=== PATIENT | male | born 1985 | race Hispanic/Latino ===

== ENCOUNTER 2017-08-06 21:15 | Emergency (ER) | payer SELFPAY ==
[2017-08-06] MEDS ORDERED: ZOFRAN IV ONE ×2 (22:07→23:40)
[2017-08-06 22:21] LABS: Bilirubin,Urine NEG (Negative); Blood,Urine NEG (Negative); Color,Urine Yellow (Yellow); Hyaline Casts,Urine 2 /LPF; Mucus,Urine 3+ /HPF; Urobilinogen,Urine < 2.0 mg/dL (<2.0)
[2017-08-06 22:27] LABS: Amphetamine Screen,Urine PRESUMPTIVE NEGATIVE; Benzodiazepines Screen,Urine PRESUMPTIVE NEGATIVE; Cocaine Screen,Urine PRESUMPTIVE NEGATIVE; Methadone Screen,Urine PRESUMPTIVE NEGATIVE; Opiate Screen,Urine PRESUMPTIVE NEGATIVE
[2017-08-06] MEDS ORDERED: NACL 0.9% 1000 ML 1,000 ML IV ONE ×2 (22:30→23:40)
[2017-08-06] MEDS ORDERED: CATAPRES PO ONE (22:30)
[2017-08-06] MEDS ORDERED: REGLAN IV ONE (22:31)
--- NOTE | 2017-08-06 22:34 | Emergency Department Report ---
HPI - General Chief Complaint: Pain General Time Seen by Provider: 08/06/17 22:06 - HPI HPI: 31-year-old male presents to emergency department with chills, nausea, vomiting, abdominal cramping, insomnia that he says is withdrawal from opiates. The patient admits to an addiction to opiates, taking 1 [place] and 1 Percocet every day for at least the past few months if not longer since his mother and "I just needed to do something for the pain. He has not taken anything else for his symptoms prior to presentation. He denies any fever, chest pain but does have body aches. No recent travel or sick contacts at home. No known aggravating or alleviating factors. ED Past Medical Hx - Medications Home Medications: Home Medications Medication Instructions Recorded Confirmed Last Taken Type ALPRAZolam [Xanax TAB] 0.5 mg PO QHS PRN #5 tab 08/07/17 Unknown Rx Ondansetron [Zofran Odt] 4 mg PO Q8H PRN #10 tab.rapdis 08/07/17 Unknown Rx ED Review of Systems ROS: Stated complaint: SOB CRAMPS MUSCLES HURT VOMIT CHILLS Other details as noted in HPI Comment: All other systems reviewed and negative Constitutional: chills. denies: fever Eyes: denies: eye pain, eye discharge, vision change ENT: denies: ear pain, throat pain Respiratory: denies: cough, wheezing Cardiovascular: denies: chest pain, palpitations Gastrointestinal: abdominal pain, nausea, vomiting Genitourinary: denies: urgency, dysuria Musculoskeletal: back pain, myalgia. denies: joint swelling Skin: denies: rash, lesions Neurological: denies: weakness, numbness Physical Exam - Physical Exam Vital Signs: Vital Signs 08/06/17 21:38 Temperature 98.6 F Pulse Rate 82 Respiratory 22 Rate Blood Pressure 160/77 Blood Pressure 160/77 [Left] O2 Sat by Pulse 98 Oximetry Physical Exam: GENERAL: The patient is well-developed well-nourished. He is slightly ill- appearing. He has some chills and appears uncomfortable secondary to his nausea. HENT: Normocephalic. Atraumatic. Patient has moist mucous membranes. EYES: Extraocular motions are intact. Pupils equal reactive to light bilaterally. NECK: Supple. Trachea is midline. CHEST/LUNGS: Clear to auscultation. There is no respiratory distress noted. HEART/CARDIOVASCULAR: Regular. There is no tachycardia. There is no murmur. ABDOMEN: Abdomen is soft, nontender. Patient has normal bowel sounds. There is no abdominal distention. SKIN: Skin is warm and dry. NEURO: The patient is awake, alert, and oriented. The patient is cooperative. The patient has no focal neurologic deficits. The patient has normal speech. MUSCULOSKELETAL: There is no tenderness or deformity. There is no limitation range of motion. There is no evidence of acute injury. ED Course Vital Signs 08/06/17 21:38 Temperature 98.6 F Pulse Rate 82 Respiratory 22 Rate Blood Pressure 160/77 Blood Pressure 160/77 [Left] O2 Sat by Pulse 98 Oximetry ED Medical Decision Making - Lab Data Result diagrams: 08/06/17 23:33 08/06/17 22:12 - Medical Decision Making The patient is about 3 or 4 days removed from using opiates and appears to be in the middle of withdrawal. He came in with chills, body aches, nausea, vomiting, headache. He was given Catapres, IV Reglan, IV Zofran, IV fluid. Labs show a leukocytosis of 18,000 which I think is reactive to his withdrawal and the nausea and vomiting. The labs also show hypokalemia with potassium of 3. At first I was going to attempt to replace it orally but he was still having episodes of vomiting. He had 10 mEq via IV and after the patient got over the nausea and vomiting he was able to take down 40 mEq orally. He was reevaluated multiple times for multiple hours and says he is feeling much better and does appear improved. I do not feel that the patient requires inpatient admission for the withdrawal symptoms. He is seen ambulatory in the emergency department and appears stable. Vital signs stable throughout the course including being afebrile. He'll be discharged home with Zofran and was given 5 Xanax pills to take in the evening for anxiety and to assist with his sleep. He understands that these pills can be sedating and therefore cannot be mixed with any level of alcohol whatsoever or he could suffer from respiratory depression. He was given referrals for [facility]. He was encouraged to return to the emergency department immediately with any worsening of symptoms or any acute distress. He understands and agrees to the plan. - Differential Diagnosis opiate withdrawal, URI, sepsis Critical Care Time: No Critical care attestation.: If time is entered above; I have spent that time in minutes in the direct care of this critically ill patient, excluding procedure time. ED Disposition Clinical Impression: Opiate withdrawal, Dehydration, Elevated blood pressure reading, Hypokalemia Nausea & vomiting Qualifiers: Vomiting type: unspecified Vomiting Intractability: unspecified Qualified Code( s): R11.2 - Nausea with vomiting, unspecified Disposition: TO HOME OR SELFCARE Is pt being admited?: No Condition: Stable Instructions: Dehydration (ED), Acute Nausea and Vomiting (ED), Opioid Withdrawal (ED) Additional Instructions: Please follow up with a primary care physician in the next few days. I have given you a referral for the [facility] who might be able to assist you with your opiate addiction and withdrawal. Increase your oral rehydration. Return to the emergency Department with any worsening of her symptoms or any acute distress. I have prescribed for you small amount of Xanax to take at night to help with your anxiety, insomnia. This medication can be very sedating and cannot be mixed with any alcohol of any quantity or else you could have respiratory depression AKA stop breathing. This medication also cannot be taken prior to working, driving, or being responsible for children. Prescriptions: ALPRAZolam [Xanax TAB] 0.5 mg PO QHS PRN #5 tab PRN Reason: Anxiety Ondansetron [Zofran Odt] 4 mg PO Q8H PRN #10 tab.rapdis PRN Reason: Nausea Referrals: PRIMARY CARE, [Primary Care Provider] - 3-5 Days [facility] [Outside] - 3-5 Days [facility] [Outside] - 3-5 Days [facility] [Outside] - 3-5 Days Time of Disposition: 02:01
[2017-08-06 22:40] LABS: Cannabinoid Screen,Urine PRESUMPTIVE POSITIVE
[2017-08-06 23:09] LABS: BUN/Creatinine Ratio 12; Blood Urea Nitrogen 12 mg/dL (9-20); Calcium 9.1 mg/dL (8.4-10.2); Hemolysis Index 0
[2017-08-06] MEDS ORDERED: K-DUR PO ONE (23:34)
[2017-08-06] MEDS ORDERED: TORADOL IV ONE (23:34)
[2017-08-06 23:56] LABS: Basophils % (Auto) 0.2 % (0.0-1.8); Eosinophils % (Auto) 0.1 % (0.0-4.3); Hemoglobin 14.5 gm/dl (11.8-15.2); Lymphocytes # (Auto) 1.9 K/mm3 (1.2-5.4); Lymphocytes % (Auto) 10.2 % (13.4-35.0); Mean Corpuscular HGB Conc 32 % (32-34); Mean Corpuscular Volume 78 fl (84-94); Monocytes # (Auto) 1.2 K/mm3 (0.0-0.8); Monocytes % (Auto) 6.3 % (0.0-7.3); Platelet Count 307 K/mm3 (140-440); Red Blood Count 5.74 M/mm3 (3.65-5.03); Red Cell Distribution Width 12.9 % (13.2-15.2)
[2017-08-07] MEDS: KCL 10MEQ/100ML 10 MEQ/100 ML BAG IV SCH ×2 (00:09→02:45)
[2017-08-07 00:16] LABS: Mean Corpuscular Hemoglobin 25 pg (28-32)
[2017-08-07] MEDS ORDERED: K-DUR PO ONE (01:26)
[2017-08-07] MEDS ORDERED: XANAX PO ONE (02:11)
[2017-08-07 04:05] VITALS: BP 150/84
== END 2017-08-07 02:45 | disposition home or self-care (01) ==
LOC: EDBD → ED 21:15
DX: F11.23 Opioid dependence with withdrawal (principal); E86.0 Dehydration; E87.6 Hypokalemia; R11.2 Nausea with vomiting, unspecified
CPT/HCPCS: 36415; 80048; 80307; 81001; 82550; 85025; 96374; 96375; 96376; 99283; J1885; J2405; J2765; J3480; J7030